=== PATIENT | male | born 1960 | race Caucasian/White ===

== ENCOUNTER 2017-06-23 18:04 | Emergency (ER) | payer MEDICAID ==
[~2017-06-23] VITALS: Ht 177.8 cm; Wt 83.8 kg
[~2017-06-23 18:04] MED LIST: HYDROCODONE
[2017-06-23 18:06] VITALS: BP 155/100
== END 2017-06-23 19:02 | disposition home or self-care (01) ==
LOC: ED 18:56
DX: S53.431A Radial collateral ligament sprain of right elbow, initial encounter (principal); S43.421A Sprain of right rotator cuff capsule, initial encounter; W01.0XXA Fall on same level from slipping, tripping and stumbling without subsequent striking against object, initial encounter; Y93.01 Activity, walking, marching and hiking; Y92.89 Other specified places as the place of occurrence of the external cause; Y99.9 Unspecified external cause status
CPT/HCPCS: 99284

== ENCOUNTER → 2018-04-17 | Outpatient (CLI) | payer MEDICAID | END | disposition home or self-care (01) | LOC: RAD 09:02 | PROVIDERS: ATTEND Physician Assistant | DX: R10.13 Epigastric pain (principal); Z86.010 Personal history of colon polyps | CPT/HCPCS: 74241 ==